=== PATIENT | female | born 1965 | race Native Hawaiian/Other Pacific Islander ===

== ENCOUNTER 2021-04-22 15:34 | Outpatient (CLI) | payer OTHER ==
[2021-04-22 16:47] VITALS: BP 150/80
--- NOTE | 2021-04-22 16:47 | SLEEP CARE CONSULTATION ---
Information from patient questionnaire entered by Lizzie Martinez. I have reviewed and concur with the information entered by Lizzie Martinez. This document represents the service I personally performed and the decisions made by me, Doron Escobedo MD, [facility]. History of Present Illness Service Date and Time: 04/22/2021 1534 Reason for Visit: New patient Chief Complaint: reports: Insomnia, Unrefreshed sleep, Snoring, Observed pauses in breathing Date of Onset: 10+ years Usual bedtime: N/A Time it takes to fall asleep: 4 hours Snores at night: Yes Observed to quit breathing while asleep: Yes Number of times waking at night: 5 Reasons for waking at night: reports: Choking, Snoring, Gasping for air, Pain, Bathroom Toss, Turn, or Twitch while sleeping: Yes Recalls having dreams: Yes Usually gets out of bed at: 1000 Feels refreshed in the morning: No Morning headache: No Sleepy or fatigued during the day: Yes Ever fallen asleep while driving: No Takes day naps: Yes Dreams during day naps: No Prior sleep studies: No Additional HPI information: I have the pleasure of seeing Ms. San today regarding the possibility of her having a sleep disorder. As you know, she is a 55 year old lady who complains of insomnia for over 10 years. She says it takes her a long time to fall asleep and sometimes, she does not sleep at all. The patient tells me that she normally goes to bed around 1 2 am, and it takes her approximately 1 4 hours to fall asleep. She has been told that she snores loudly and irregularly at night. She has never been observed to stop breathing in her sleep but she has woken up gasping for air. She now sleeps alone. She can recall waking up on the average of 5 times during the night. Most of the time she wakes up because of having to use the bathroom and pain. There is a lot of tossing and turning in her sleep. No somniloquy (sleep talking) or somnambulism (sleep walking). Generally she can recall having dreams. In the morning she usually gets up out of the bed around 10 a.m. not feeling refreshed nor rested. She usually does not have a morning headache. During the day she complains of feeling sleepy and fatigued. Her score on [place] Sleepiness Scale is 3 out of 24. She never has fallen asleep while driving nor has had any accident due to sleepiness. She usually does not take naps during the day. She reports having impaired concentration during the day. - Parasomnia Symptoms Ever been unable to move upon waking from sleep: Yes Walks in sleep: No Talks in sleep: Yes Ever acted out dreams in sleep: Yes Ever felt weak in the knees when startled or emotional: No Bothered by creepy, crawly, restless sensations in legs: No Problems with memory or concentration: Yes Subjective Initial [place] Sleepiness Scale score: 3 (in 2020) Past Medical History Past Medical History: reports: Hypertension, Claustrophobia, Diabetes, Arthritis, Gout, Fibromyalgia, Anxiety, Asthma, Depression, GERD, Other (back problems, carpol tunnel (Left), Shoulder (Left), Foot problemt (Left)) Social History The patient's occupation is a [employer]. Patient is and lives in . Have you smoked in the past 12 months: No Quit date: 2019 Alcohol use: No Caffeine use: Yes Caffeine amount and frequency: 1-2 cups/week Family History Family Hx Sleep Apnea: Sibling: Sleep apnea - Treated Allergies and Home Medications Drug allergies reviewed: Yes Home medication list reviewed: Yes Review of Systems Weight loss over past 5 years: 10 Cardiovascular: reports: high blood pressure, palpitations, chest pain, irregular heart rate or pulse, have to sleep sitting up Gastrointestinal: reports: heartburn Urinary: reports: incontinence Neurological: reports: headaches, fainting or unconsciousness Psychiatric: reports: anxiety, depression, claustrophobia Ear/Nose/Throat: reports: wisdom teeth removed Endocrine: reports: sluggishness, too hot or cold Musculoskeletal: reports: joint pain, neck pain, back pain, joint swelling, muscle pain or cramping, mobility problems, other (back problems in L4/L5/SI inner fusion) Physical Exam Vital signs obtained and entered by: Dr. Escobedo Blood Pressure: 150/80 Cuff size: regular Heart Rate: 80 O2 Saturation: 98 Height: 5 ft Weight: 150 lb Body Mass Index: 29.2 BMI Classification: Overweight Neck circumference: 16 Mood/affect: normal HEENT: No craniofacial malformation Nostrils: patent to airflow Turbinates: normal Septum: midline Mouth and throat: narrow oropharynx Soft palate: long Hard palate: normal Uvula: normal Uvula visualization: 50% Mallampati Class II Tongue: normal in size Tonsils: absent bilaterally Chin and jaw: normal size and position Neck: normal w/o lymphadenopathy or thyromegaly Heart: regular rate and rhythm Lungs: clear bilaterally Abdomen: soft Extremities: no edema or clubbing Neurologic: intact Impression and Plan IMPRESSION: 1. Obstructive Sleep Apnea-Hypopnea Syndrome, as evident by history of loud and irregular snoring, frequent awakenings during the night, nocturnal choking, unrefreshed sleep, cognitive impairment, and daytime hypersomnolence. Narrow oropharynx and obesity are common predisposing factors for obstructive sleep apnea-hypopnea syndrome. Untreated obstructive sleep apnea can also cause hypertension. I recommend proceeding to polysomnography to confirm the diagnosis and to assess severity. If she has significant sleep disordered breathing, a manual CPAP titration study will also be performed to find the optimal treatment pressure. I informed the patient of what the sleep studies involve and after some discussion, she agreed to proceed. 2. Insomnia, due to delayed sleep phase syndrome. The patients goal is to go to bed at 10 pm and get up at 5 am. I encouraged her to do so. I explained to that she must first fix the wakeup time at 5 am before her bedtime will occur at 10 pm. If she wakes up any later than 5 am, then her bedtime will be later than 10 pm. Plan: 1. Schedule polysomnography and return in 1 to 2 weeks after the study to discuss result and initiate therapy. 2. Maintain a regular wake up time and spend no more than 7 hours in bed at night. Avoid naps. 3. Avoid alcohol, sedative and muscle relaxant around bedtime. 4. Attempt to lose weight. Counseling Topics: Weight control Visit Type: In Office Time Spent with Patient (minutes): 15 Provider Statement: I spent 100% of the Face to Face Visit with the patient with greater than 50% spent counseling the patient and coordination of care.
== END 2021-04-22 15:35 | disposition home or self-care (01) ==
LOC: SC 15:34
PROVIDERS: ATTEND Internal Medicine Pulmonary Disease
DX: R06.83 Snoring (principal); G47.8 Other sleep disorders; R09.89 Other specified symptoms and signs involving the circulatory and respiratory systems; R41.89 Other symptoms and signs involving cognitive functions and awareness; G47.10 Hypersomnia, unspecified; G47.09 Other insomnia; G47.21 Circadian rhythm sleep disorder, delayed sleep phase type
CPT/HCPCS: 99202; 99212

== ENCOUNTER 2021-11-15 09:22 | Outpatient (CLI) | payer OTHER ==
--- NOTE | 2021-11-15 16:17 | XRAY Report ---
PROCEDURE: Shoulder 3 View BILAT INDICATIONS: R/L SHOULDER COMPLETE XR TECHNIQUE: 3 views of the right shoulder and left shoulder were acquired. COMPARISON: None. FINDINGS: Bones: No fractures or dislocations. No suspicious bony lesions. Visualized ribs appear intact. Mi ld osteoarthritic degenerative changes noted in the bilateral glenohumeral and acromioclavicular join ts. Soft tissues: No suspicious soft tissue calcifications. IMPRESSION: Mild bilateral glenohumeral joint and acromioclavicular joint osteoarthritis. Reviewed by: Vilma Seo MD, PhD on 11/15/2021 4:16 PM PST Approved by: Vilma Seo MD, PhD on 11/15/2021 4:16 PM PST Station ID: [id number]
== END 2021-11-15 09:23 | disposition home or self-care (01) ==
LOC: DI 09:22
PROVIDERS: ATTEND Internal Medicine
DX: M19.011 Primary osteoarthritis, right shoulder (principal)

== ENCOUNTER 2022-02-26 20:27 | Outpatient (CLI) | payer OTHER | END 2022-02-26 20:28 | disposition home or self-care (01) | LOC: LAB 20:27 | PROVIDERS: ATTEND Nurse Practitioner | DX: U07.1 COVID-19 (principal) | CPT/HCPCS: 87275; 87276 ==

== ENCOUNTER 2023-06-24 08:00 | Outpatient (CLI) | payer OTHER, MEDICAID | END 2023-06-24 23:59 | disposition home or self-care (01) | LOC: LAB.N 08:00 | PROVIDERS: ATTEND Physician Assistant Medical | DX: N30.00 Acute cystitis without hematuria (principal) | CPT/HCPCS: 87086; 87181 ==

== ENCOUNTER 2024-01-02 08:00 | Outpatient (CLI) | payer MEDICAID, OTHER ==
[2024-01-02 18:53] LABS: BASOPHILS # (AUTO) 0.1 10^3/uL (0.0-0.1); BASOPHILS % (AUTO) 0.6 %; EOSINOPHILS # (AUTO) 0.6 10^3/uL (0.0-0.7); EOSINOPHILS % (AUTO) 7.1 %; HCT - HEMATOCRIT 45.2 % (37.0-47.0); HGB - HEMOGLOBIN 14.5 g/dL (12.0-16.0); LYMPHOCYTES # (AUTO) 2.8 10^3/uL (1.5-3.5); LYMPHOCYTES % (AUTO) 34.6 %; MEAN CORPUSCULAR HEMOGLOBIN 30.1 pg (27.0-31.0); MEAN CORPUSCULAR HGB CONC 32.1 g/dL (32.0-36.0); MEAN CORPUSCULAR VOLUME 93.8 fL (81.0-99.0); MONOCYTES # (AUTO) 0.5 10^3/uL (0.0-1.0); MONOCYTES % (AUTO) 6.2 %; NEUTROPHILS # (AUTO) 4.1 10^3/uL (1.5-6.6); NEUTROPHILS % (AUTO) 50.9 %; PLT - PLATELET COUNT 288 10^3/uL (130-450); RED BLOOD COUNT 4.82 10^6/uL (4.20-5.40); RED CELL DISTRIBUTION WIDTH 11.9 % (12.0-15.0)
[2024-01-02 19:02] LABS: CREATININE,URINE 93.5 mg/dL; MICROALBUM/CREATININE RATIO,UR 9.6 ug/mg (<30.0); MICROALBUMIN,URINE 0.9 mg/dL
[2024-01-02 19:08] LABS: ALBUMIN 4.5 g/dL (3.2-5.5); ALBUMIN/GLOBULIN RATIO 1.2 (1.0-2.2); BILIRUBIN,TOTAL 0.6 mg/dL (0.2-1.0); CALCIUM 10.2 mg/dL (8.5-10.3); CREATININE 0.8 mg/dL (0.6-1.3); ESTIMATED AVERAGE GLUCOSE 157 mg/dL (70-100); HEMOGLOBIN A1c% 7.1 % (4.27-6.07); POTASSIUM 3.7 mmol/L (3.5-4.5); TOTAL PROTEIN 8.3 g/dL (6.4-8.9)
[2024-01-02 19:19] LABS: THYROID STIMULATING HORMONE 1.36 uIU/mL (0.34-5.60)
== END 2024-01-02 23:59 | disposition home or self-care (01) ==
LOC: LAB.N 08:00
PROVIDERS: ATTEND Family Medicine
DX: I10 Essential (primary) hypertension (principal); E11.9 Type 2 diabetes mellitus without complications
CPT/HCPCS: 36415; 80053; 82043; 82570; 83036; 84443; 85025

== ENCOUNTER 2024-02-09 08:00 | Outpatient (CLI) | payer OTHER ==
[2024-02-09 17:39] LABS: BILIRUBIN,URINE NEGATIVE (NEGATIVE); GLUCOSE, URINE (UA) NEGATIVE (NEGATIVE); KETONES,URINE (UA) NEGATIVE (NEGATIVE); LEUKOCYTE ESTERASE, URINE NEGATIVE (NEGATIVE); NITRITE,URINE NEGATIVE (NEGATIVE); OCCULT BLOOD,URINE NEGATIVE (NEGATIVE); PH,URINE 5.5 PH (5.0-7.5); PROTEIN,URINE NEGATIVE (NEGATIVE); UROBILINOGEN,URINE 0.2 (NORMAL) E.U./dL (NORMAL)
[2024-02-09 17:45] LABS: CLARITY,URINE CLOUDY (CLEAR)
[2024-02-09 17:59] LABS: BACTERIA,URINE None Seen /HPF (None Seen); RBC,URINE None Seen /HPF (0-5); SQUAMOUS EPITHELIAL CELL,UR FEW Squamous (<= Few); WBC,URINE 0-3 /HPF (0-5)
[2024-02-09 18:00] LABS: AMORPHOUS SEDIMENT,UR Marked /LPF
== END 2024-02-09 23:59 | disposition home or self-care (01) ==
LOC: LAB.N 08:00
PROVIDERS: ATTEND Nurse Practitioner
DX: R31.9 Hematuria, unspecified (principal)
CPT/HCPCS: 81001; 81003; 87086